=== PATIENT | female | born 1980 | race African-American/Black ===

== ENCOUNTER 2017-01-17 23:59 | Emergency (ER) | payer SELFPAY ==
[~2017-01-17 23:59] MED LIST: DULERA 100 MCG/13 GM INH; FLONASE NAS; GLUCOPHAGE1000 MG PO; GLUCOTRO10 PO; IRON OTC PO; METFORMIN PO; PRIN10 PO; PROAIR HFA INH; SYMBICORT 80/4.1 INH INH; VENTOLIN HFA INH; [UNRECOGNIZED DRUG - OTHER] PO
== END 2017-01-18 05:12 | disposition home or self-care (01) ==
LOC: ER 23:59
DX: R05 Cough (principal); I10 Essential (primary) hypertension; Z79.899 Other long term (current) drug therapy
CPT/HCPCS: 71020; 99283